=== PATIENT | male | born 1985 | race Caucasian/White ===

== ENCOUNTER 2020-06-16 08:46 | Emergency (ER) | payer BC ==
[~2020-06-16] VITALS: Ht 175.3 cm; Wt 117.9 kg
--- NOTE | 2020-06-16 08:47 | NUR ---
PT EMILY STALEYS. TAKEN TO BED 4
[2020-06-16 08:51] VITALS: BP 106/61
--- NOTE | 2020-06-16 08:54 | NUR ---
35 y/o M EMILY from home with c/c back pain. Patient presents A&Ox4, ambulatory and states acute onset of mid lower back pain s/p removing a trash bin basket at home. Patient reports 11/23, sharp/shooting/intermittent, non-radiating pain after standing up with the bag. Patient statse he took Ibuprofen 800mg and applied an IcyHot patch without relief x 30 minutes [employer]. Patient states pain alleviates laying on side; denies any trauma/fall, numbness, tingling. Pt placed onto blood pressure cuff/pulse ox. Bed locked in lowest position, side rails x 1, call light in reach. PMH/Sx/Meds: Darling BELL Addendum: 06/16/20 at 0903 by MED 35 y/o M EMILY from home with c/c back pain. Patient presents A&Ox4, non-ambulatory d/t pain and states acute onset of mid lower back pain s/p removing a trash bin basket at home. Patient reports 11/23, sharp/shooting/intermittent, non-radiating pain after standing up with the bag. Patient statse he took Ibuprofen 800mg and applied an IcyHot patch without relief x 30 minutes [employer]. Patient states pain alleviates laying on side; denies any trauma/fall, numbness, tingling. Pt placed onto blood pressure cuff/pulse ox. Bed locked in lowest position, side rails x 1, call light in reach. PMH/Sx/Meds: Darling BELL
--- NOTE | 2020-06-16 08:57 | NUR ---
Dr. Martínez examining patient.
[2020-06-16] MEDS: diazePAM 5 MG TAB PO ONE (09:18)
[2020-06-16] MEDS: KETOROLAC 30 MG/ML VIAL IM ONE (09:18)
--- NOTE | 2020-06-16 09:22 | NUR ---
Patient transported to X-ray via wheelchair.
--- NOTE | 2020-06-16 09:32 | NUR ---
Patient returned from X-ray via wheelchair.
--- NOTE | 2020-06-16 09:35 | NUR ---
Patient reports no pain relief after Toradol 30mg IM. States he "feels a little bit more relaxed," however, pain 10/10 with any movement.
--- NOTE | 2020-06-16 10:05 | NUR ---
Patient resting in left side with both eyes open. Reports pain 4/10 without movement, 8/10 with movement. Patient reports no additional need for pain medication at this time; advised to utilize call light if pain increases to a 10/10. Bed locked in lowest position, side rails x 1, call light in reach.
--- NOTE | 2020-06-16 10:30 | NUR ---
Patient able to demonstrate ability to walk.
--- NOTE | 2020-06-16 10:34 | NUR ---
Dr. Martínez is reevaluating patient at bedside.
[2020-06-16] MEDS ORDERED: NAPR-54 PO (10:37)
[2020-06-16] MEDS ORDERED: LID5T TP (10:37)
[2020-06-16] MEDS ORDERED: DIAZ5TAB7 PO (10:37)
[2020-06-16 10:46] VITALS: BP 106/61
--- NOTE | 2020-06-16 10:46 | NUR ---
Patient discharged with v/s stable. Written and verbal after care instructions given and explained. Patient alert, oriented and verbalized understanding of instructions. Ambulatory with steady gait. All questions addressed prior to discharge. ID band removed. Patient advised to follow up with PMD. Rx of Diazepam, Lidocaine Hyd, Naproxen given. Patient educated on indication of medication including possible reaction and side effects. Opportunity to ask questions provided and answered.
== END 2020-06-16 10:46 | disposition home or self-care (01) ==
LOC: MED 08:46
DX: S39.012A Strain of muscle, fascia and tendon of lower back, initial encounter (principal); Z79.1 Long term (current) use of non-steroidal anti-inflammatories (NSAID); Z79.899 Other long term (current) drug therapy; X50.0XXA Overexertion from strenuous movement or load, initial encounter; Y92.89 Other specified places as the place of occurrence of the external cause; Y93.89 Activity, other specified; Y99.8 Other external cause status
CPT/HCPCS: 72100; 96372; 99283; J1885